=== PATIENT | female | born 1970 | race Caucasian/White ===

== ENCOUNTER 2017-04-23 19:28 | Emergency (ER) | payer OTHER ==
[2017-04-23 22:14] LABS: BASOPHIL 0.1 % (0-2); EOSINOPHIL 0.3 % (0-5); HCT 43.5 % (37.0-47.0); HGB 15.2 g/dl (12.5-16.0); MCH 30.7 pg (25.0-31.0); MCHC 34.9 g/dL (32.0-36.0); MCV 87.9 fL (78.0-100.0); MONOCYTE 10.2 % (0-12); MPV 10.3 fL (6.0-9.5); NEUTROPHIL 64.4 % (41-80); PLT 262 K/uL (150-400); RBC 4.95 M/uL (4.20-5.40); RDW 13.4 % (11.5-14.0); WBC 8.6 K/uL (4.0-10.5)
[2017-04-23 22:29] LABS: ALBUMIN 4.9 g/dL (3.5-5.0); BILIRUBIN - TOTAL 0.5 mg/dL (0.1-1.0); CREATININE 0.8 mg/dL (0.5-1.0); GLOBULIN (CALCULATION) 3.3 g/dL (2.2-4.2); POTASSIUM 3.7 mmol/L (3.5-5.1); TOTAL PROTEIN 8.2 g/dL (6.4-8.3)
[2017-04-23 23:29] LABS: BILIRUBIN NEGATIVE (NEGATIVE); BLOOD NEGATIVE Ery/uL (NEGATIVE); CLARITY CLEAR (CLEAR); COLOR YELLOW (YELLOW); GLUCOSE (U) NORMAL (NORMAL); KETONE (U) TRACE mg/dL (NEGATIVE); LEUKOCYTES NEGATIVE Leu/uL (NEGATIVE); NITRITE NEGATIVE (NEGATIVE); PROTEIN TRACE (LOW) mg/dL (NEGATIVE); SPECIFIC GRAVITY 1.025 (1.001-1.030); UROBILINOGEN 0.2 mg/dL (0.2-1.0)
== END 2017-04-23 23:44 | disposition home or self-care (01) ==
LOC: FER 19:28
PROVIDERS: Emergency Medicine
DX: K52.9 Noninfective gastroenteritis and colitis, unspecified (principal); K29.70 Gastritis, unspecified, without bleeding; Z88.6 Allergy status to analgesic agent; Z79.899 Other long term (current) drug therapy
CPT/HCPCS: 36415; 80053; 81003; 82150; 83690; 84484; 85025; 93005; C9113; J2405

== ENCOUNTER 2020-09-09 16:32 | Emergency (ER) | payer OTHER ==
[~2020-09-09 16:32] MED LIST: AZITHROMYCIN250 MG PO; FLEXERIL10 MG PO; MEDROL 4MG DOSEP4 MG PO; NEURONTIN300 MG PO; ONDANSETRON ODT4 MG SL; PERCOCET 5-3251 EACH PO; SEROQUEL 100MG100 MG PO; TAMIFLU 75MG CA75 MG PO; TESSALON PERLE100 MG PO; VENTOLIN HFA IN18 GM INH; VISTARIL25 MG PO; ZOFRAN4 MG PO
[2020-09-09 19:28] LABS: BASOPHIL 0.8 % (0-2); EOSINOPHIL 1.1 % (0-5); HCT 40.2 % (37.0-47.0); HGB 13.2 g/dl (12.5-16.0); LYMPHOCYTE 27.5 % (15-48); MCH 29.5 pg (25.0-31.0); MCHC 32.8 g/dL (32.0-36.0); MCV 89.9 fL (78.0-100.0); MONOCYTE 7.6 % (0-12); MPV 10.3 fL (6.0-9.5); NEUTROPHIL 61.3 % (41-80); NRBC 0; PLT 265 K/uL (150-400); RBC 4.47 M/uL (4.20-5.40); RDW 12.8 % (11.5-14.0); WBC 11.3 K/uL (4.0-10.5)
[2020-09-09 19:46] LABS: ALBUMIN 3.4 g/dL (3.4-5.0); BILIRUBIN - TOTAL 0.2 mg/dL (0.2-1.0); BUN/CREAT RATIO (CALC) 15.4 RATIO; CREATININE 0.78 mg/dL (0.51-0.95); GLOBULIN (CALCULATION) 3.3 g/dL; POTASSIUM 4.1 mmol/L (3.5-5.1); TOTAL PROTEIN 6.7 g/dL (6.4-8.2)
[2020-11-25] MEDS ORDERED: GABAPENTIN800 MG PO (14:55)
[2020-12-01] MEDS ORDERED: PERCOCET 5-3251 EACH PO (12:26)
== END 2020-09-09 22:35 | disposition home or self-care (01) ==
LOC: FER 16:32
PROVIDERS: Emergency Medicine
DX: M79.622 Pain in left upper arm (principal); F17.290 Nicotine dependence, other tobacco product, uncomplicated; Z88.6 Allergy status to analgesic agent
CPT/HCPCS: 36415; 71045; 80053; 84484; 85025; 93005

== ENCOUNTER → 2020-11-09 | Day surgery (SDC) | payer OTHER ==
[~2020-11-09] MED LIST changes: +GABAPENTIN800 MG PO
== END | disposition home or self-care (01) ==
LOC: FAS 07:01
DX: D12.2 Benign neoplasm of ascending colon (principal); K63.5 Polyp of colon; K31.9 Disease of stomach and duodenum, unspecified; K44.9 Diaphragmatic hernia without obstruction or gangrene; K21.9 Gastro-esophageal reflux disease without esophagitis; F17.210 Nicotine dependence, cigarettes, uncomplicated; G89.29 Other chronic pain; M54.2 Cervicalgia; F41.9 Anxiety disorder, unspecified; M19.90 Unspecified osteoarthritis, unspecified site; Z88.6 Allergy status to analgesic agent; Z79.899 Other long term (current) drug therapy
CPT/HCPCS: J2704; J7120

== ENCOUNTER → 2020-12-01 | Day surgery (SDC) | payer OTHER | END | disposition home or self-care (01) | LOC: FAS 08:50 | DX: D17.1 Benign lipomatous neoplasm of skin and subcutaneous tissue of trunk (principal); K21.9 Gastro-esophageal reflux disease without esophagitis; F17.210 Nicotine dependence, cigarettes, uncomplicated; G47.33 Obstructive sleep apnea (adult) (pediatric); F41.9 Anxiety disorder, unspecified; Z88.6 Allergy status to analgesic agent; Z88.8 Allergy status to other drugs, medicaments and biological substances; Z79.899 Other long term (current) drug therapy | CPT/HCPCS: J1100; J1885; J2001; J2250; J2405; J2704; J3010; J7120 ==

== ENCOUNTER 2021-06-17 19:24 | Emergency (ER) | payer OTHER | END 2021-06-17 21:35 | disposition home or self-care (01) | LOC: FER 19:24 | DX: S93.401A Sprain of unspecified ligament of right ankle, initial encounter (principal); Z88.6 Allergy status to analgesic agent; W19.XXXA Unspecified fall, initial encounter; X50.1XXA Overexertion from prolonged static or awkward postures, initial encounter; Y92.009 Unspecified place in unspecified non-institutional (private) residence as the place of occurrence of the external cause | CPT/HCPCS: 73610 ==

== ENCOUNTER 2021-09-11 18:39 | Emergency (ER) | payer OTHER ==
[2021-09-11] MEDS ORDERED: NORCO 5-325 TA1 EACH PO (21:11)
== END 2021-09-11 21:14 | disposition home or self-care (01) ==
LOC: FER 18:39
DX: M77.32 Calcaneal spur, left foot (principal); F17.210 Nicotine dependence, cigarettes, uncomplicated; Z88.6 Allergy status to analgesic agent
CPT/HCPCS: 73630

== ENCOUNTER → 2021-11-27 | Day surgery (SDC) | payer OTHER ==
[~2021-11-27] VITALS: Ht 162.6 cm; Wt 93.0 kg
[~2021-11-27] MED LIST changes: +CYCLOBENZAPRINE10 MG PO; +NORCO 5-325 TA1 EACH PO; +OMEPRAZOLE40 MG PO
== END | disposition home or self-care (01) ==
LOC: FAS 09:30
DX: K29.50 Unspecified chronic gastritis without bleeding (principal); K31.9 Disease of stomach and duodenum, unspecified; K21.00 Gastro-esophageal reflux disease with esophagitis, without bleeding; G43.909 Migraine, unspecified, not intractable, without status migrainosus; K44.9 Diaphragmatic hernia without obstruction or gangrene; Z90.710 Acquired absence of both cervix and uterus; Z88.6 Allergy status to analgesic agent; Z87.891 Personal history of nicotine dependence
CPT/HCPCS: J2704; J7120

== ENCOUNTER 2022-01-12 15:13 | Emergency (ER) | payer OTHER ==
[2022-01-12 16:35] LABS: BASOPHIL 0.4 % (0-2); EOSINOPHIL 0 % (0-5); HCT 42.2 % (37.0-47.0); LYMPHOCYTE 12.7 % (15-48); MCH 29.9 pg (25.0-31.0); MCHC 33.2 g/dL (32.0-36.0); MCV 90.2 fL (78.0-100.0); MONOCYTE 8.5 % (0-12); MPV 10.7 fL (6.0-9.5); NEUTROPHIL 77.2 % (41-80); NRBC 0; PLT 206 K/uL (150-400); RBC 4.68 M/uL (4.20-5.40); RDW 13.8 % (11.5-14.0); WBC 12.2 K/uL (4.0-10.5)
[2022-01-12 16:39] LABS: BILIRUBIN 1+ mg/dL (NEGATIVE); BLOOD TRACE-INTACT Ery/uL (NEGATIVE); CLARITY CLEAR (CLEAR); COLOR YELLOW (YELLOW); GLUCOSE (U) NORMAL (NORMAL); LEUKOCYTES NEGATIVE Leu/uL (NEGATIVE); NITRITE NEGATIVE (NEGATIVE); PROTEIN 2+ mg/dL (NEGATIVE); SPECIFIC GRAVITY >=1.030 (1.001-1.030)
[2022-01-12 16:50] LABS: MUCOUS LARGE
[2022-01-12 16:52] LABS: AMORPHOUS URATES CRYSTALS MODERATE; BACTERIA TRACE; URINARY RBC RARE
[2022-01-12 16:54] LABS: BUN/CREAT RATIO (CALC) 12.9 RATIO; CREATININE 0.7 mg/dL (0.51-0.95); POTASSIUM 3.7 mmol/L (3.5-5.1)
[2022-01-12 17:14] LABS: CORONAVIRUS 2019 SARS-COV-2 NEGATIVE (NEGATIVE); INFLUENZA A NAA NEGATIVE (NEGATIVE)
[2022-01-12 18:34] LABS: LACTIC ACID 2.1 mmol/L (0.4-1.9)
[2022-01-12] MEDS ORDERED: AZITHROMYCIN250 MG PO (21:08)
[2022-01-12] MEDS ORDERED: MEDROL 4MG DOSEP4 MG PO (21:08)
== END 2022-01-12 23:40 | disposition home or self-care (01) ==
LOC: FER 15:13
PROVIDERS: Nurse Practitioner Family
DX: J44.9 Chronic obstructive pulmonary disease, unspecified (principal); G47.33 Obstructive sleep apnea (adult) (pediatric); Z20.822 Contact with and (suspected) exposure to COVID-19; Z88.6 Allergy status to analgesic agent; Z88.8 Allergy status to other drugs, medicaments and biological substances
CPT/HCPCS: 36415; 71045; 80048; 81001; 83605; 85025; 94640; 94664; J7030; U0002